=== PATIENT | female | born 1955 | race African-American/Black ===

== ENCOUNTER 2017-02-18 14:37 | Emergency (ER) | payer MEDICARE, MEDICAID ==
[~2017-02-18] VITALS: Ht 162.6 cm; Wt 85.0 kg
[2017-02-18] MEDS ORDERED: IBUPROFEN 600MG TABLET PO ONE (17:30)
[2017-02-18] MEDS ORDERED: KETOROLAC 60MG/2ML VIAL IM ONE (18:00)
[2017-02-18 18:58] VITALS: BP 152/69
== END 2017-02-18 19:00 | disposition home or self-care (01) ==
LOC: ER 17:11
DX: S46.911A Strain of unspecified muscle, fascia and tendon at shoulder and upper arm level, right arm, initial encounter (principal); I10 Essential (primary) hypertension; E11.9 Type 2 diabetes mellitus without complications; F17.210 Nicotine dependence, cigarettes, uncomplicated; X58.XXXA Exposure to other specified factors, initial encounter; Y93.89 Activity, other specified; Y92.9 Unspecified place or not applicable; Y99.8 Other external cause status
CPT/HCPCS: 73030; 73060; 73080; 96372; 99284; J1885